=== PATIENT | female | born 1980 | race African-American/Black ===

== ENCOUNTER 2022-01-17 14:03 | Inpatient (IN) ==
[2022-01-17] MEDS ORDERED: methylPREDNISolone SOD SUC 125 MG/2 ML VIAL IV STA (19:34)
[2022-01-17] MEDS ORDERED: HYDROmorphone 1 MG/1 ML SYRINGE IV STA (19:34)
[2022-01-17] MEDS ORDERED: FUROSEMIDE 40 MG/4 ML VIAL IV STA (19:34)
[2022-01-17] MEDS ORDERED: ALBUTEROL/IPRATROPIUM 3 ML NEB RESP TX STA (19:34)
[2022-01-17] MEDS ORDERED: ONDANSETRON 4 MG/2 ML VIAL IV STA (19:34)
[2022-01-17 20:14] LABS: Basophils % 0.5 % (0.0-0.8); Eosinophils # 0.1 10*3/uL (0.0-0.87); Eosinophils % 1.8 % (0.00-10.9); Hematocrit 37.7 VOL% (35.7-47.0); Hemoglobin 11.6 GM/DL (12.0-16.0); Immature Granulocytes % 0.3 %; Immature Granulocytes Absolute 0.02 #; Lymphocytes # 2.3 10*3/uL (1.4-4.0); Lymphocytes % 38.3 % (21.3-54.2); Mean Corpuscular HGB Conc 30.8 GM/DL (32-36); Mean Corpuscular Volume 86.5 FL (87-102); Mean Platelet Volume 8.8 FL (9.6-12.0); Monocytes # 0.5 10*3/uL (0.11-0.8); Monocytes % 8.3 % (1.7-12.7); Neutrophils % 50.8 % (38.7-73.9); Platelet Count 550 T/CUMM (130-400); Red Blood Count 4.36 MC/CUMM (3.8-5.5); Red Cell Distribution Width 17.4 % (9.3-17.3)
[2022-01-17 20:41] LABS: Albumin 2.3 G/DL (3.4-5.0); Bilirubin,Total 0.4 MG/DL (0.20-1.00); Calcium 8.7 MG/DL (8.5-10.1); Potassium 3.7 MMOL/L (3.5-5.1); Total Protein 5.8 G/DL (6.4-8.2)
[2022-01-17 21:11] LABS: Glucose,Urine (UA) Negative (Negative); Ketones,Urine Negative (Negative); Nitrite,Urine Negative (Negative); Protein,Urine Negative (Negative); Urine Appearance Clear (Clear); Urine Color Light Yellow (Yellow); Urine Specific Gravity 1.015 (1.001-1.035)
[2022-01-17 21:12] LABS: Bilirubin,Urine Negative (Negative); Blood, Urine Moderate mg/dL (Negative); Urine Urobilinogen 0.2 eU/dL (<2.0)
[2022-01-17 21:13] LABS: RBC,Urine 1 /HPF (0-4); Squamous Epithelial Cell,Urine Occasional /HPF (0-10)
[2022-01-17] MEDS ORDERED: MORPHINE 2 MG/1 ML SYRINGE IV PRN (21:49)
[2022-01-17] MEDS ORDERED: GLUCAGON 1 MG VIAL IM PRN (21:49)
[2022-01-17] MEDS ORDERED: POTASSIUM CHLORIDE 20 MEQ TABLET PO PRN (21:49)
[2022-01-17] MEDS ORDERED: hydrALAZINE 20 MG/1 ML VIAL IV PRN (21:49)
[2022-01-17] MEDS ORDERED: ONDANSETRON 4 MG/2 ML VIAL IV PRN (21:49)
[2022-01-17] MEDS ORDERED: POTASSIUM CHLORIDE 20 MEQ TABLET PO ONE (21:49)
[2022-01-17] MEDS ORDERED: DEXTROSE 10% 250 ML BAG IV PRN (21:49)
[2022-01-17] MEDS ORDERED: ACETAMINOPHEN 325 MG TABLET PO PRN (21:49)
[2022-01-17] MEDS ORDERED: NICOTINE 21 MG/24 HR PATCH TRANSDERM PRN (21:49)
[2022-01-17 21:58] LABS: Barbiturates Screen,Urine Negative (Negative); Benzodiazepines Screen,Urine Negative (Negative); Cannabinoid Screen,Urine Positive (Negative); Opiate Screen,Urine Negative (Negative); Phencyclidine Screen,Urine Negative (Negative)
[2022-01-18] MEDS ORDERED: ALBUTEROL/IPRATROPIUM 3 ML NEB RESP TX PRN (01:33)
[2022-01-18 02:05] LABS: Basophils % 0.1 % (0.0-0.8); Hematocrit 39.3 VOL% (35.7-47.0); Hemoglobin 12.1 GM/DL (12.0-16.0); Immature Granulocytes % 0.7 %; Immature Granulocytes Absolute 0.05 #; Lymphocytes # 0.4 10*3/uL (1.4-4.0); Lymphocytes % 5.6 % (21.3-54.2); Mean Corpuscular HGB Conc 30.8 GM/DL (32-36); Mean Corpuscular Volume 86.4 FL (87-102); Mean Platelet Volume 9.2 FL (9.6-12.0); Monocytes # 0.1 10*3/uL (0.11-0.8); Monocytes % 0.9 % (1.7-12.7); Neutrophils % 92.7 % (38.7-73.9); Platelet Count 553 T/CUMM (130-400); Red Blood Count 4.55 MC/CUMM (3.8-5.5); Red Cell Distribution Width 17.2 % (9.3-17.3); White Blood Count 7.7 T/CUMM (4-12)
[2022-01-18 02:30] LABS: Lymphocytes 3 % (20-55); Platelet Estimate Increased; Target Cells 1+; Total Cells Counted 100
[2022-01-18 02:31] LABS: Calcium 8.6 MG/DL (8.5-10.1); Osmolality,Calculated 281.4 MOS/KG (273-304); Risk Ratio 5.15; Thyroid Stimulating Hormone 0.34 uIU/ml (0.358-3.74); VLDL Cholesterol 15.4 MG/DL
[2022-01-18] MEDS: PANTOPRAZOLE 40 MG TABLET PO SCH (09:00)
[2022-01-18] MEDS: FUROSEMIDE 40 MG/4 ML VIAL IV SCH ×2 (09:00→18:14)
[2022-01-18] MEDS: POLYETHYLENE GLYCOL POWDER 17 GM PACK PO SCH (09:00)
[2022-01-18] MEDS: ENOXAPARIN 40 MG/0.4 ML SYRINGE SUBCUT SCH (09:00)
[2022-01-18] MEDS: INSULIN LISPRO 100 UNIT/ML SUBCUT SCH ×3 (09:01→18:15)
[2022-01-18 09:06] LABS: Basophils % 0.1 % (0.0-0.8); Hematocrit 37.8 VOL% (35.7-47.0); Hemoglobin 11.7 GM/DL (12.0-16.0); Immature Granulocytes % 0.3 %; Immature Granulocytes Absolute 0.02 #; Lymphocytes # 0.9 10*3/uL (1.4-4.0); Lymphocytes % 12.2 % (21.3-54.2); Mean Corpuscular Volume 86.5 FL (87-102); Monocytes # 0.2 10*3/uL (0.11-0.8); Monocytes % 2.1 % (1.7-12.7); Neutrophils % 85.3 % (38.7-73.9); Platelet Count 550 T/CUMM (130-400); Red Blood Count 4.37 MC/CUMM (3.8-5.5); Red Cell Distribution Width 17.2 % (9.3-17.3); White Blood Count 7.1 T/CUMM (4-12)
[2022-01-18 09:17] LABS: Alanine Aminotransferase 41 U/L (13-56); Albumin 2.2 G/DL (3.4-5.0); Alkaline Phosphatase 94 U/L (45-117); Aspartate Amino Transferase 18 U/L (0-37); Bilirubin,Total < 0.39 MG/DL (0.20-1.00); Blood Urea Nitrogen 8 MG/DL (7-18); Calcium 9.1 MG/DL (8.5-10.1); Carbon Dioxide 35 MMOL/L (21-32); Chloride 102 MMOL/L (98-107); Glucose 144 MG/DL (74-106); Osmolality,Calculated 279.4 MOS/KG (273-304); Potassium 4.1 MMOL/L (3.5-5.1); Sodium 140 MMOL/L (136-145); Total Protein 6.2 G/DL (6.4-8.2)
[2022-01-18] MEDS ORDERED: KETOROLAC 15 MG/1 ML VIAL IV ONE (11:45)
[2022-01-18] MEDS ORDERED: METOCLOPRAMIDE 10 MG/2 ML VIAL IV ONE (11:46)
[2022-01-18] MEDS: DILTIAZEM CD 240 MG CAPSULE PO SCH (12:48)
[2022-01-18] MEDS: VALSARTAN 80 MG TABLET PO SCH (12:48)
[2022-01-19] MEDS: INSULIN LISPRO 100 UNIT/ML SUBCUT SCH ×3 (00:22→12:23)
[2022-01-19 05:21] LABS: Basophils % 0.4 % (0.0-0.8); Eosinophils # 0.1 10*3/uL (0.0-0.87); Eosinophils % 0.8 % (0.00-10.9); Hemoglobin 11.6 GM/DL (12.0-16.0); Immature Granulocytes % 0.5 %; Immature Granulocytes Absolute 0.04 #; Lymphocytes # 2.8 10*3/uL (1.4-4.0); Lymphocytes % 35.8 % (21.3-54.2); Mean Corpuscular HGB Conc 31.4 GM/DL (32-36); Mean Corpuscular Volume 84.3 FL (87-102); Monocytes # 0.5 10*3/uL (0.11-0.8); Monocytes % 6.2 % (1.7-12.7); Neutrophils % 56.3 % (38.7-73.9); Platelet Count 595 T/CUMM (130-400); Red Blood Count 4.39 MC/CUMM (3.8-5.5); Red Cell Distribution Width 17.2 % (9.3-17.3); White Blood Count 7.7 T/CUMM (4-12)
[2022-01-19 05:43] LABS: Alanine Aminotransferase 34 U/L (13-56); Albumin 2.4 G/DL (3.4-5.0); Alkaline Phosphatase 87 U/L (45-117); Aspartate Amino Transferase 14 U/L (0-37); Bilirubin,Total < 0.39 MG/DL (0.20-1.00); Blood Urea Nitrogen 14 MG/DL (7-18); Calcium 8.8 MG/DL (8.5-10.1); Carbon Dioxide 37 MMOL/L (21-32); Chloride 101 MMOL/L (98-107); Glucose 101 MG/DL (74-106); Osmolality,Calculated 279.4 MOS/KG (273-304); Potassium 3.4 MMOL/L (3.5-5.1); Sodium 140 MMOL/L (136-145); Total Protein 6.3 G/DL (6.4-8.2)
[2022-01-19] MEDS ORDERED: POTASSIUM CHLORIDE 20 MEQ TABLET PO ONE ×2 (08:51→11:00)
[2022-01-19] MEDS: VALSARTAN 80 MG TABLET PO SCH (09:34)
[2022-01-19] MEDS: DILTIAZEM CD 240 MG CAPSULE PO SCH (09:34)
[2022-01-19] MEDS: PANTOPRAZOLE 40 MG TABLET PO SCH (09:34)
[2022-01-19] MEDS: ENOXAPARIN 40 MG/0.4 ML SYRINGE SUBCUT SCH (09:35)
[2022-01-19] MEDS: POLYETHYLENE GLYCOL POWDER 17 GM PACK PO SCH (09:35)
[2022-01-19] MEDS: FUROSEMIDE 40 MG/4 ML VIAL IV SCH (09:35)
[2022-01-19 12:18] VITALS: BP 119/73
== END 2022-01-19 16:04 | disposition home or self-care (01) | DRG 194 ==
LOC: N.ED 14:03 → N.TELEN 21:49
PROVIDERS: ADMIT Family Medicine; ATTEND Family Medicine

== ENCOUNTER 2022-02-26 18:57 | Inpatient (IN) ==
[2022-02-26] MEDS ORDERED: KETOROLAC 30 MG/1 ML VIAL IV STA (23:32)
[2022-02-26] MEDS ORDERED: SODIUM CHLORIDE 0.9% 500 ML IV STA (23:32)
[2022-02-26] MEDS ORDERED: ONDANSETRON 4 MG/2 ML VIAL IV STA (23:32)
[2022-02-27 00:19] LABS: Basophils % 0.3 % (0.0-0.8); Eosinophils # 0.1 10*3/uL (0.0-0.87); Eosinophils % 0.8 % (0.00-10.9); Hematocrit 42.6 VOL% (35.7-47.0); Immature Granulocytes % 0.9 %; Lymphocytes # 1.6 10*3/uL (1.4-4.0); Lymphocytes % 14.9 % (21.3-54.2); Mean Corpuscular HGB Conc 30.5 GM/DL (32-36); Mean Corpuscular Volume 85.7 FL (87-102); Mean Platelet Volume 8.8 FL (9.6-12.0); Monocytes # 0.6 10*3/uL (0.11-0.8); Monocytes % 5.9 % (1.7-12.7); Neutrophils % 77.2 % (38.7-73.9); Platelet Count 560 T/CUMM (130-400); Red Blood Count 4.97 MC/CUMM (3.8-5.5); Red Cell Distribution Width 19.4 % (9.3-17.3); White Blood Count 10.6 T/CUMM (4-12)
[2022-02-27 00:34] LABS: Alanine Aminotransferase 12 U/L (13-56); Albumin 2.7 G/DL (3.4-5.0); Alkaline Phosphatase 105 U/L (45-117); Amylase 48 U/L (25-115); Aspartate Amino Transferase 13 U/L (0-37); Bilirubin,Total < 0.39 MG/DL (0.20-1.00); Blood Urea Nitrogen 9 MG/DL (7-18); Calcium 9.5 MG/DL (8.5-10.1); Carbon Dioxide 29 MMOL/L (21-32); Chloride 104 MMOL/L (98-107); Glucose 93 MG/DL (74-106); Osmolality,Calculated 271.8 MOS/KG (273-304); Potassium 4.4 MMOL/L (3.5-5.1); Sodium 137 MMOL/L (136-145); Total Protein 7.2 G/DL (6.4-8.2)
[2022-02-27 01:12] LABS: Bacteria,Urine Occasional /HPF (Few); Mucus,Urine Occasional /LPF (Occasional); RBC,Urine 19 /HPF (0-4); Squamous Epithelial Cell,Urine Occasional /HPF (0-10)
[2022-02-27 01:13] LABS: Urine Appearance Clear (Clear); Urine Color Yellow (Yellow)
[2022-02-27 01:14] LABS: Bilirubin,Urine Negative (Negative); Blood, Urine Negative (Negative); Glucose,Urine (UA) Negative (Negative); Ketones,Urine Negative (Negative); Nitrite,Urine Negative (Negative); Protein,Urine 100 mg/dL (Negative); Urine Urobilinogen 0.2 eU/dL (<2.0)
[2022-02-27] MEDS ORDERED: CLINDAMYCIN INJ 600 MG/50 ML PREMIX IV STA (01:45)
[2022-02-27 01:56] LABS: Barbiturates Screen,Urine Negative (Negative); Benzodiazepines Screen,Urine Negative (Negative); Cannabinoid Screen,Urine Positive (Negative); Opiate Screen,Urine Negative (Negative); Phencyclidine Screen,Urine Negative (Negative)
[2022-02-27] MEDS ORDERED: DEXTROSE 10% 250 ML BAG IV PRN (02:59)
[2022-02-27] MEDS ORDERED: ONDANSETRON 4 MG/2 ML VIAL IV PRN (02:59)
[2022-02-27] MEDS ORDERED: GLUCAGON 1 MG VIAL IM PRN (02:59)
[2022-02-27] MEDS ORDERED: ASPIRIN 325 MG TABLET PO STA (02:59)
[2022-02-27] MEDS ORDERED: ACETAMINOPHEN 325 MG TABLET PO PRN (02:59)
[2022-02-27] MEDS ORDERED: hydrALAZINE 20 MG/1 ML VIAL IV PRN (02:59)
[2022-02-27 03:32] LABS: Risk Ratio 5.63; Thyroid Stimulating Hormone 1.25 uIU/ml (0.358-3.74); VLDL Cholesterol 26.2 MG/DL
[2022-02-27] MEDS ORDERED: HydrOXYzine PAMOATE 50 MG CAPSULE PO PRN (05:53)
[2022-02-27] MEDS: INSULIN LISPRO 100 UNIT/ML SUBCUT SCH ×4 (08:14→22:10)
[2022-02-27] MEDS ORDERED: CLINDAMYCIN INJ 600 MG/50 ML PREMIX IV SCH (09:00)
[2022-02-27] MEDS: MONTELUKAST 10 MG TABLET PO SCH ×2 (09:03→21:22)
[2022-02-27] MEDS: PANTOPRAZOLE 40 MG TABLET PO SCH (09:03)
[2022-02-27] MEDS: ENOXAPARIN 40 MG/0.4 ML SYRINGE SUBCUT SCH (09:04)
[2022-02-27] MEDS: DILTIAZEM CD 120 MG CAPSULE PO SCH (10:10)
[2022-02-27] MEDS: VALSARTAN 80 MG TABLET PO SCH (10:10)
[2022-02-27] MEDS: carvediloL 6.25 MG TABLET PO SCH ×2 (12:28→21:22)
[2022-02-27] MEDS ORDERED: VANCOMYCIN INJ 1,000 MG in SODIUM CHLORIDE 0.9% 250 ML IV SCH (13:00)
[2022-02-27] MEDS: cefTRIAXone 1,000 MG in SODIUM CHLORIDE 0.9% 100 ML IV SCH (13:51)
[2022-02-27] MEDS: VANCOMYCIN INJ 1,500 MG in SODIUM CHLORIDE 0.9% 500 ML IV SCH (17:57)
[2022-02-27] MEDS ORDERED: HydrOXYzine PAMOATE 25 MG CAPSULE PO PRN (21:30)
[2022-02-27] MEDS ORDERED: diphenhydrAMINE 50 MG/1 ML VIAL IV ONE (23:00)
[2022-02-27] MEDS ORDERED: methylPREDNISolone SOD SUC 125 MG/2 ML VIAL IV ONE (23:00)
[2022-02-28] MEDS: INSULIN LISPRO 100 UNIT/ML SUBCUT SCH ×4 (07:40→20:39)
[2022-02-28] MEDS: VANCOMYCIN INJ 1,500 MG in SODIUM CHLORIDE 0.9% 500 ML IV SCH (09:04)
[2022-02-28] MEDS: ENOXAPARIN 40 MG/0.4 ML SYRINGE SUBCUT SCH (09:04)
[2022-02-28] MEDS ORDERED: LACTATED RINGERS 1,000 ML IV SCH (09:30)
[2022-02-28] MEDS ORDERED: fentaNYL 100 MCG/2 ML VIAL ONE (10:27)
[2022-02-28] MEDS ORDERED: propofoL 200 MG/20 ML VIAL IV ONE ×2 (10:27→10:58)
[2022-02-28] MEDS ORDERED: MIDAZOLAM 2 MG/2 ML VIAL ONE (10:27)
[2022-02-28] MEDS ORDERED: LIDOCAINE 2% 5 ML VIAL ONE (10:27)
[2022-02-28] MEDS ORDERED: GLUCAGON 1 MG VIAL IM PRN (10:37)
[2022-02-28] MEDS ORDERED: DEXTROSE 10% 250 ML BAG IV PRN (10:37)
[2022-02-28] MEDS ORDERED: KETAMINE 500 MG/10 ML VIAL ONE (10:39)
[2022-02-28] MEDS ORDERED: MORPHINE 2 MG/1 ML SYRINGE IV PRN ×2 (10:40→10:42)
[2022-02-28] MEDS: MONTELUKAST 10 MG TABLET PO SCH ×2 (11:50→20:41)
[2022-02-28] MEDS ORDERED: HYDROmorphone 1 MG/1 ML SYRINGE ONE (11:50)
[2022-02-28] MEDS ORDERED: HYDROmorphone 1 MG/1 ML SYRINGE IV PRN (11:51)
[2022-02-28] MEDS ORDERED: ONDANSETRON 4 MG/2 ML VIAL IV PRN (11:51)
[2022-02-28] MEDS: CLINDAMYCIN INJ 900 MG/50 ML PREMIX IV SCH ×2 (12:45→20:41)
[2022-02-28] MEDS: PANTOPRAZOLE 40 MG TABLET PO SCH (12:46)
[2022-02-28] MEDS: VALSARTAN 80 MG TABLET PO SCH (12:46)
[2022-02-28] MEDS: carvediloL 6.25 MG TABLET PO SCH ×2 (12:46→20:48)
[2022-02-28] MEDS: DILTIAZEM CD 120 MG CAPSULE PO SCH (12:46)
[2022-02-28] MEDS: cefTRIAXone 1,000 MG in SODIUM CHLORIDE 0.9% 100 ML IV SCH (14:11)
[2022-02-28] MEDS ORDERED: ATORVASTATIN 40 MG TABLET PO SCH (21:00)
[2022-03-01] MEDS: CLINDAMYCIN INJ 900 MG/50 ML PREMIX IV SCH (04:35)
[2022-03-01 06:28] LABS: Calcium 8.4 MG/DL (8.5-10.1); Osmolality,Calculated 277.7 MOS/KG (273-304); Potassium 3.7 MMOL/L (3.5-5.1)
[2022-03-01 06:40] LABS: Basophils % 0.4 % (0.0-0.8); Eosinophils # 0.3 10*3/uL (0.0-0.87); Eosinophils % 3.5 % (0.00-10.9); Hematocrit 37.1 VOL% (35.7-47.0); Hemoglobin 11.3 GM/DL (12.0-16.0); Immature Granulocytes % 0.4 %; Immature Granulocytes Absolute 0.03 #; Lymphocytes # 3.1 10*3/uL (1.4-4.0); Mean Corpuscular HGB Conc 30.5 GM/DL (32-36); Mean Corpuscular Volume 85.9 FL (87-102); Mean Platelet Volume 9.1 FL (9.6-12.0); Monocytes # 0.6 10*3/uL (0.11-0.8); Monocytes % 6.9 % (1.7-12.7); Neutrophils % 51.8 % (38.7-73.9); Platelet Count 506 T/CUMM (130-400); Red Blood Count 4.32 MC/CUMM (3.8-5.5); Red Cell Distribution Width 19.1 % (9.3-17.3); White Blood Count 8.3 T/CUMM (4-12)
[2022-03-01 07:17] LABS: Macrocytosis 1+; Platelet Estimate Increased
[2022-03-01] MEDS ORDERED: SIMVASTATIN 10 MG TABLET PO SCH (09:00)
[2022-03-01] MEDS: INSULIN LISPRO 100 UNIT/ML SUBCUT SCH ×2 (09:35→12:29)
[2022-03-01] MEDS: MONTELUKAST 10 MG TABLET PO SCH (09:36)
[2022-03-01] MEDS: carvediloL 6.25 MG TABLET PO SCH (09:36)
[2022-03-01] MEDS: PANTOPRAZOLE 40 MG TABLET PO SCH (09:36)
[2022-03-01] MEDS: VALSARTAN 80 MG TABLET PO SCH (09:37)
[2022-03-01] MEDS: DILTIAZEM CD 120 MG CAPSULE PO SCH (09:37)
[2022-03-01] MEDS: ENOXAPARIN 40 MG/0.4 ML SYRINGE SUBCUT SCH (09:38)
[2022-03-01 12:24] VITALS: BP 83/58
== END 2022-03-01 12:45 | disposition home or self-care (01) | DRG 951 ==
LOC: EDBD → EDUNIT# → N.EDINP 18:57 → N.ED 18:57 → N.2W 02-27 03:58 → SUATTDRO 02-27 10:44
PROVIDERS: ADMIT Family Medicine; ATTEND Internal Medicine